=== PATIENT | female | born 1960 | race Caucasian/White ===

== ENCOUNTER 2020-03-30 06:03 | Day surgery (SDC) | payer BC ==
[2020-03-29 11:27] LABS: BASOPHILS % (AUTO) 0.2 % (0-1); EOSINOPHILS % (AUTO) 0 % (0-6); HEMATOCRIT 42.7 % (35.0-45.0); HEMOGLOBIN 14.8 g/dl (12.0-16.0); LYMPHOCYTES # (AUTO) 0.9 X10'3 (1.1-4.8); LYMPHOCYTES % (AUTO) 7.3 % (21-51); MEAN CORPUSCULAR HEMOGLOBIN 33.3 PG (27.0-31.0); MEAN CORPUSCULAR HGB CONC 34.8 g/dL (33.0-36.5); MEAN CORPUSCULAR VOLUME 95.7 FL (78-98); MEAN PLATELET VOLUME 8.2 FL (7.4-10.4); MONOCYTES # (AUTO) 0.4 X10'3 (0-0.9); MONOCYTES % (AUTO) 3.5 % (2-12); NEUTROPHILS # (AUTO) 10.7 X10'3 (1.8-7.7); PLATELET COUNT 309 X10'3 (140-440); RED BLOOD COUNT 4.46 X10'6 (4.20-5.60); RED CELL DISTRIBUTION WIDTH 12.8 % (11.5-14.5)
[2020-03-29 11:39] LABS: PARTIAL THROMBOPLASTIN TIME 24 SECONDS (22-32)
[2020-03-29 11:43] LABS: ALBUMIN 4.2 G/DL (3.4-5.0); ANION GAP 11 (8-16); BLOOD UREA NITROGEN 16 MG/DL (7-18); BUN/CREATININE RATIO 18.6 (6.6-38.0); CALCIUM 9.9 MG/DL (8.5-10.1); CHLORIDE 102 MMOL/L (99-107); CREATININE 0.86 MG/DL (0.40-0.90); GLUCOSE 120 MG/DL (70-104); POTASSIUM 3.7 MMOL/L (3.5-5.1); SODIUM 141 MMOL/L (135-145); TOTAL CARBON DIOXIDE 28.3 MMOL/L (24-32); eGFR 68 ML/MIN
[2020-03-30] VITALS (9 sets, daily range): BP systolic 100–127; BP diastolic 46–77
[~2020-03-30] VITALS: Ht 167.6 cm; Wt 182.6 kg
[2020-03-30] MEDS ORDERED: normal saline 1,000 ML IV SCH ×2 (06:25→10:25)
[2020-03-30] MEDS ORDERED: LORazepam 0.5 MG tablet PO PRN (06:25)
[2020-03-30] MEDS ORDERED: diphenhydrAMINE 25mg capsule PO PRN (06:25)
[2020-03-30] MEDS ORDERED: OMEG-133 PO (07:42)
[2020-03-30] MEDS ORDERED: TRAM50TA2 PO (07:42)
[2020-03-30] MEDS ORDERED: DIPH25CA83 PO (07:42)
[2020-03-30] MEDS ORDERED: PROP40TA72 PO (07:42)
[2020-03-30] MEDS ORDERED: CHOL20004 PO (07:42)
[2020-03-30] MEDS ORDERED: VITA400T10 PO (07:42)
[2020-03-30] MEDS ORDERED: LORA-269 PO (07:42)
[2020-03-30] MEDS ORDERED: SIMV40TA PO (07:42)
[2020-03-30] MEDS ORDERED: MECO10005 PEG (07:42)
[2020-03-30] MEDS ORDERED: TRIA1CAP2 PO (07:42)
[2020-03-30] MEDS ORDERED: FAMO-128 PO (07:42)
[2020-03-30] MEDS ORDERED: ASCO500C18 PO (07:42)
[2020-03-30] MEDS ORDERED: ASPI-1053 PO (07:42)
[2020-03-30] MEDS ORDERED: UBID300C PO (07:42)
[2020-03-30] MEDS ORDERED: ALB0.5UD IH (07:42)
[2020-03-30] MEDS ORDERED: verapamil 2.5 mg/ml inj IV ONE (07:43)
[2020-03-30] MEDS ORDERED: LIDOcaine 1% (10mg/ml)w/preservative injection 20ml MDV ONE (07:43)
[2020-03-30] MEDS ORDERED: midazolam 2 mg/2 ml injection ONE (07:43)
[2020-03-30] MEDS ORDERED: fentaNYL/PF 50MCG/1 ML 2ML syringe ONE (07:43)
[2020-03-30] MEDS ORDERED: nitroGLYCERIN-Tridil 50MG/D5W 250 ML IV ONE (07:44)
[2020-03-30] MEDS ORDERED: iohexol 350MG/ML 100ml bottle IV ONE (07:44)
[2020-03-30] MEDS ORDERED: iohexol 350 MG/ML 50ML vial IV ONE (07:44)
[2020-03-30] MEDS ORDERED: heparin 1,000unit/ml 10ml vial 10 ML ONE (07:44)
== END 2020-03-30 13:51 | disposition home or self-care (01) ==
LOC: SSTAY O 06:03
PROVIDERS: ATTEND Internal Medicine Cardiovascular Disease
DX: R06.02 Shortness of breath (principal); Q21.0 Ventricular septal defect; I25.10 Atherosclerotic heart disease of native coronary artery without angina pectoris; I10 Essential (primary) hypertension; E78.5 Hyperlipidemia, unspecified; Z79.01 Long term (current) use of anticoagulants; Z79.899 Other long term (current) drug therapy
CPT/HCPCS: 36415; 80048; 85025; 85610; 85730; 93005; 93460; 99152; 99153; C1769; C1894; J1644; J2001; J2250; J3010; J7030; Q9967; A4620; C1751; J3490

== ENCOUNTER 2020-04-20 09:37 | Outpatient (CLI) | payer BC ==
[2020-04-20] VITALS (19 sets, daily range): BP systolic 95–126; BP diastolic 43–81
[~2020-04-20 09:37] MED LIST: ALB0.5UD IH; ASCO500C18 PO; ASPI-1053 PO; CHOL20004 PO; DIPH25CA83 PO; FAMO-128 PO; LORA-269 PO; MECO10005 PEG; OMEG-133 PO; PROP40TA72 PO; SIMV40TA PO; TRAM50TA2 PO; TRIA1CAP2 PO; UBID300C PO; VITA400T10 PO
== END 2020-04-20 23:59 | disposition home or self-care (01) ==
LOC: CARD DIAG 09:37
PROVIDERS: ATTEND Internal Medicine Cardiovascular Disease
DX: R42 Dizziness and giddiness (principal)
CPT/HCPCS: 93660